=== PATIENT | female | born 1995 | race Caucasian/White ===

== ENCOUNTER 2020-04-23 05:25 | Day surgery (SDC) | payer OTHER ==
[2020-04-21 13:31] LABS: BASOPHILS % (AUTO) 0.4 % (0.0-2.0); EOSINOPHILS % (AUTO) 0.5 % (1.0-6.0); HEMOGLOBIN 13.2 g/dL (12.0-16.0); LYMPHOCYTES # (AUTO) 1.5 K/uL (1.0-4.8); LYMPHOCYTES % (AUTO) 27.8 % (22.0-44.0); MEAN CORPUSCULAR HEMOGLOBIN 33.9 pg (26.0-34.0); MEAN CORPUSCULAR HGB CONC 34.8 G/dL (31.0-37.0); MEAN CORPUSCULAR VOLUME 98 fL (80-100); MONOCYTES # (AUTO) 0.4 K/uL (0.1-1.0); MONOCYTES % (AUTO) 6.6 % (2.0-9.0); NEUTROPHILS # (AUTO) 3.5 K/uL (1.8-7.7); NEUTROPHILS % (AUTO) 64.7 % (40.0-70.0); PLATELET COUNT (AUTO) 338 K/uL (150-450); RED CELL DISTRIBUTION WIDTH 12.1 % (11.5-14.5)
[2020-04-21 13:42] LABS: ANION GAP 6 mmol/L (8-16); CALCIUM, TOTAL 9.1 mg/dL (8.8-10.5); CARBON DIOXIDE 28 mmol/L (22-29); CHLORIDE 102 mmol/L (98-107); CREATININE 0.59 mg/dL (0.60-1.30); GLOMERULAR FILTR. RATE CALC > 60 mL/min (>60); GLUCOSE,RANDOM 87 mg/dL (70-110); POTASSIUM 3.9 mmol/L (3.5-5.1); SODIUM SERUM 136 mmol/L (136-145); UREA NITROGEN, BLOOD 8 mg/dL (7-18)
[2020-04-21 13:47] LABS: PROTHROMBIN TIME 10.4 SEC (9.4-11.6)
[2020-04-21 13:48] LABS: ALANINE AMINOTRANSFERASE 23 U/L (12-78); ALBUMIN 3.6 g/dL (3.4-5.0); ALKALINE PHOSPHATASE 90 U/L (46-116); ASPARTATE AMINOTRANSFERASE 13 U/L (15-37); BILIRUBIN,TOTAL 0.5 mg/dL (0.1-1.0); TOTAL PROTEIN, SERUM 7.1 g/dL (6.4-8.2)
[~2020-04-23] VITALS: Ht 157.5 cm; Wt 99.5 kg
[~2020-04-23 05:25] MED LIST: RINGERS SOLUTION,LACTATED 1,000 ML IV ONE; SULF1TAB89 PO
[2020-04-23] MEDS ORDERED: RINGERS SOLUTION,LACTATED 1,000 ML IV ONE (06:00)
[2020-04-23] MEDS ORDERED: IOHEXOL 240 MG/ML 20 ML VIAL ONE (06:01)
[2020-04-23] MEDS ORDERED: TRIAMCINOLONE ACETONIDE 40 MG/ML VIAL ONE (06:02)
[2020-04-23] MEDS ORDERED: SODIUM CHLORIDE 0.9% 0 ML ONE (06:02)
[2020-04-23] MEDS ORDERED: BUPIVACAINE HCL/PF 0.25% 30 ML VIAL ONE ×2 (06:02→07:37)
[2020-04-23] MEDS ORDERED: BUPIVACAINE LIPOSOME/PF 1.3%-13.3MG/ML SUSPENSION 20 ML VIAL INJ ONE (06:30)
[2020-04-23] MEDS ORDERED: SODIUM CHLORIDE 0.9% 1,000 ML ONE (06:37)
== END 2020-04-23 08:35 | disposition home or self-care (01) ==
LOC: SURGERY 05:25
PROVIDERS: ATTEND Orthopaedic Surgery
DX: M25.552 Pain in left hip (principal); Q05.9 Spina bifida, unspecified; Z20.828 Contact with and (suspected) exposure to other viral communicable diseases; D64.9 Anemia, unspecified; E66.3 Overweight; Z68.41 Body mass index [BMI] 40.0-44.9, adult; Z87.01 Personal history of pneumonia (recurrent); Z91.040 Latex allergy status; Z91.041 Radiographic dye allergy status; M77.8 Other enthesopathies, not elsewhere classified; Z79.01 Long term (current) use of anticoagulants; Z79.899 Other long term (current) drug therapy
CPT/HCPCS: 20550; 20610; 27095; 27096; 27275; 36415; 73525; 80053; 84703; 85025; 85610; 85730; 87635; C9290; J3301; J3490; J7030; J7120; Q9966; J7050